=== PATIENT | female | born 1965 | race Caucasian/White ===

== ENCOUNTER 2021-05-15 08:56 | Outpatient (CLI) | payer OTHER, SELFPAY ==
--- NOTE | ~2021-05-15 | MR_ITS ---
EXAMINATION: MR brain/brain stem wo/w con DATE: 05/15/2021 10:31 INDICATION: Other visual disturbances. TECHNIQUE: Magnetic resonance imaging (MRI) of the brain and brainstem was performed without and with 20 mL MultiHance intravenous contrast. Sequences included sagittal and axial T1-weighted FSE, axial diffusion-weighted FS EPI, axial T2*-weighted GRE, axial T2-weighted FLAIR Propeller, and axial T2-we ighted Propeller. Postcontrast sequences included axial and coronal T1-weighted FSE. Apparent diffusi on coefficient (ADC) maps were created. COMPARISON: None. FINDINGS: There is no intracranial hemorrhage, acute infarction, or abnormal intracranial mass lesion . There are scattered areas of nonspecific increased T2-weighted signal intensity in the cerebral whi te matter and shira. The ventricles are normal in size. The orbits are normal. There is mild mucosal t hickening in the paranasal sinuses. The mastoid air cells are normal. IMPRESSION: 1. Moderate nonspecific cerebral white matter disease, which likely represents chronic small vessel i schemic disease. Reviewed, dictated and finalized at location A. IMPRESSION: 1. Moderate nonspecific cerebral white matter disease, which likely represents chronic small vessel ischemic disease.
== END 2021-05-15 08:57 | disposition home or self-care (01) ==
LOC: CHSIMG 09:00
PROVIDERS: PCP Family Medicine; Visit Provider Family Medicine
DX: H53.8 Other visual disturbances (principal)
CPT/HCPCS: 70553; A9577